=== PATIENT | female | born 1945 ===

== ENCOUNTER 2018-05-11 08:36 | Emergency (ER) | payer OTHER ==
[~2018-05-11] VITALS: Ht 162.6 cm; Wt 74.4 kg
[2018-05-11] MEDS ORDERED: AVAPRO300 MG PO (09:15)
[2018-05-11] MEDS ORDERED: GLIMEPIRIDE4 MG PO (09:16)
[2018-05-11] MEDS ORDERED: CARVEDILOL3.125 MG PO (09:17)
[2018-05-11] MEDS ORDERED: ZESTORETIC 20-1 EAC1 PO (15:23)
== END 2018-05-11 18:01 | disposition home or self-care (01) ==
LOC: ER 08:36
DX: J11.1 Influenza due to unidentified influenza virus with other respiratory manifestations (principal)

== ENCOUNTER → 2019-03-31 | Emergency (ER) | payer OTHER ==
[~2019-03-31] VITALS: Ht 165.1 cm; Wt 71.7 kg
[~2019-03-31] MED LIST: AVAPRO300 MG PO; CARVEDILOL3.125 MG PO; GLIMEPIRIDE4 MG PO; NORVASC5 MG PO; ZESTORETIC 20-1 EAC1 PO
== END | disposition left against medical advice (07) ==
LOC: ER 00:27
DX: Z53.20 Procedure and treatment not carried out because of patient's decision for unspecified reasons (principal)